=== PATIENT | female | born 1995 | race Caucasian/White ===

== ENCOUNTER 2017-08-02 21:29 | Emergency (ER) | payer SELFPAY ==
[~2017-08-02] VITALS: Ht 154.9 cm; Wt 85.0 kg
[~2017-08-02 21:29] MED LIST: CEPH500C3 PO; CYCL5TAB PO; DIFL150T PO; LO LTAB PO; NORE1CHW4 PO
[2017-08-02 21:31] VITALS: BP 130/88; PULSE 88; RESP 18; TEMP 99.9; O2SAT 98
[2017-08-02] MEDS ORDERED: ACETAMINOPHEN 325 MG TAB PO ONE (22:15)
--- NOTE | 2017-08-02 22:39 | PD ---
HPI . Swollen neck Chief Complaint: Back/ Neck Pain or Injury Time Seen by Provider: 22:11 Travel History International Travel<30 days: No Contact w/Intl Traveler<30days: No Traveled to known affect area: No History of Present Illness HPI This patient presents complaining with a swollen neck. Onset was 2 weeks ago. She states that it is associated with diffuse myalgias. She believes that her symptoms are secondary to being out of her levothyroxine. She is reportedly on levothyroxine for hyperthyroidism. The patient reports the acute onset of rhinorrhea and subjective fevers and chills last night. No modifying factors. Symptoms are mild. Symptoms have been continuous. PFSH Past Medical History Diminished Hearing: No Thyroid Disease: Yes (HYPERTHYROID) Tetanus Vaccination: < 5 Years Influenza Vaccination: Yes ?: Unknown LMP: 07/16/17 Past Surgical History Surgical History: No Previous Surgery Social History Alcohol Use: No Tobacco Use: No Substance Use: No Allergies-Medications (Allergen,Severity, Reaction): Coded Allergies: No Known Allergies (Unverified Adverse Reaction, Unknown, 08/02/17) Reported Meds & Prescriptions Reported Meds & Active Scripts Active No Active Prescriptions or Reported Medications Review of Systems Except as stated in HPI: all other systems reviewed are Neg General / Constitutional: Positive: Fever, Chills HENT: Positive: Rhinorrhea, Neck Pain, Masses Musculoskeletal: Positive: Myalgias Physical Exam Narrative Vital Signs Date Time Temp Pulse Resp B/P (MAP) Pulse Ox O2 Delivery O2 Flow Rate FiO2 08/02/17 22:14 14 08/02/17 21:31 99.9 88 18 130/88 (102) 98 Room Air GENERAL: Healthy-appearing 22-year-old in no distress. SKIN: warm/dry. Normal color. HEAD: Normocephalic. Atraumatic. EYES: Pupils equal and round. No scleral icterus. No injection or drainage. ENT: Mild nasal discharge. Mucous membranes pink and moist. Oropharynx has no erythema, exudate or tonsillar enlargement. NECK: Trachea midline. Full range of motion without pain.. No goiter palpated. Bilateral cervical lymphadenopathy. CARDIOVASCULAR: Regular rate and rhythm. RESPIRATORY: No accessory muscle use. Clear to auscultation. Breath sounds equal bilaterally. MUSCULOSKELETAL: No obvious deformities. NEUROLOGICAL: Awake and alert. No obvious cranial nerve deficits. Motor grossly within normal limits. Normal speech. PSYCHIATRIC: Appropriate mood and affect; insight and judgment normal. Data Data Last Documented VS Vital Signs Date Time Temp Pulse Resp B/P (MAP) Pulse Ox O2 Delivery O2 Flow Rate FiO2 08/03/17 00:34 98.9 81 14 131/63 (85) 97 08/02/17 21:31 Room Air Orders Orders Complete Blood Count With Diff (08/02/17 22:15) Influenzae A/B Antigen (08/02/17 22:15) Monoscreen (08/02/17 22:15) Basic Metabolic Panel (Bmp) (08/02/17 22:15) Thyroid Stimulating Hormone (08/02/17 22:15) Acetaminophen (Tylenol) (08/02/17 22:15) Group A Rapid Strep Screen (08/02/17 23:23) Strep Culture (Group A) (08/02/17 23:20) Ed Discharge Order (08/03/17 00:10) Labs Laboratory Tests Test 08/02/17 22:30 White Blood Count 7.5 TH/MM3 Red Blood Count 5.07 MIL/MM3 Hemoglobin 14.2 GM/DL Hematocrit 41.4 % Mean Corpuscular Volume 81.6 FL Mean Corpuscular Hemoglobin 27.9 PG Mean Corpuscular Hemoglobin Concent 34.2 % Red Cell Distribution Width 12.5 % Platelet Count 197 TH/MM3 Mean Platelet Volume 7.8 FL Neutrophils (%) (Auto) 61.5 % Lymphocytes (%) (Auto) 17.4 % Monocytes (%) (Auto) 20.4 % Eosinophils (%) (Auto) 0.1 % Basophils (%) (Auto) 0.6 % Neutrophils # (Auto) 4.6 TH/MM3 Lymphocytes # (Auto) 1.3 TH/MM3 Monocytes # (Auto) 1.5 TH/MM3 Eosinophils # (Auto) 0.0 TH/MM3 Basophils # (Auto) 0.0 TH/MM3 CBC Comment DIFF FINAL Differential Comment Blood Urea Nitrogen 11 MG/DL Creatinine 0.76 MG/DL Random Glucose 88 MG/DL Calcium Level 9.1 MG/DL Sodium Level 138 MEQ/L Potassium Level 3.9 MEQ/L Chloride Level 106 MEQ/L Carbon Dioxide Level 25.1 MEQ/L Anion Gap 7 MEQ/L Estimat Glomerular Filtration Rate 96 ML/MIN Thyroid Stimulating Hormone 3rd Gen 0.900 uIU/ML Monoscreen NEG MDM Medical Decision Making Medical Screen Exam Complete: Yes Emergency Medical Condition: Yes Medical Record Reviewed: Yes (the patient had a goiter noted on physical exam in the past. She had a subsequent thyroid panel and thyroid ultrasound which were negative. There is no record of treatment with hormone therapy in her records here.) Differential Diagnosis Differential diagnosis includes but is not limited to nonspecific viral illness , influenza, mononucleosis Narrative Course This patient presents with the chief complaint of neck swelling and pain. Her exam does not show goiter. She has cervical lymphadenopathy. I have ordered a CBC and BMP. I have also ordered a flu screen and mono screen. Because of her reported history of hyperthyroidism, I have added a TSH. CBC & BMP Diagram 08/02/17 22:30 Calcium Level 9.1 Monoscreen and flu screen neg. TSH 0.900 (normal) Diagnosis Primary Impression: Cervical lymphadenopathy Scripts No Active Prescriptions or Reported Meds Disposition: 01 DISCHARGE HOME Condition: Stable Chelle Ferro MD Aug 02, 2017 22:39
[2017-08-02 22:44] LABS: AUTOMATED NEUTROPHIL # 4.6 TH/MM3 (1.8-7.7); BASOPHIL % 0.6 % (0.0-2.0); EOSINOPHIL % 0.1 % (0.0-4.0); HEMATOCRIT 41.4 % (35.0-46.0); HEMOGLOBIN 14.2 GM/DL (11.6-15.3); LYMPH % 17.4 % (9.0-44.0); LYMPHOCYTE # 1.3 TH/MM3 (1.0-4.8); MEAN CELL VOLUME 81.6 FL (80.0-100.0); MEAN CORPUSCULAR HEMOGLOBIN 27.9 PG (27.0-34.0); MEAN CORPUSCULAR HGB CONC 34.2 % (32.0-36.0); MEAN PLATELET VOLUME 7.8 FL (7.0-11.0); MONO % 20.4 % (0.0-8.0); MONOCYTE # 1.5 TH/MM3 (0-0.9); NEUT % 61.5 % (16.0-70.0); PLATELET COUNT 197 TH/MM3 (150-450); RED BLOOD COUNT 5.07 MIL/MM3 (4.00-5.30); RED CELL DISTRIBUTION WIDTH 12.5 % (11.6-17.2); WHITE BLOOD COUNT 7.5 TH/MM3 (4.0-11.0)
[2017-08-02 23:06] LABS: BICARBONATE 25.1 MEQ/L (21.0-32.0); CALCIUM 9.1 MG/DL (8.5-10.1); CREATININE 0.76 MG/DL (0.50-1.00)
[2017-08-02 23:10] LABS: MONOSCREEN NEG (NEG)
--- NOTE | 2017-08-02 23:41 | PD ---
Physical Exam Time Seen by Provider: 23:20 Data Data Last Documented VS Vital Signs Date Time Temp Pulse Resp B/P (MAP) Pulse Ox O2 Delivery O2 Flow Rate FiO2 08/03/17 00:01 14 08/02/17 21:31 99.9 88 130/88 (102) 98 Room Air Orders Orders Complete Blood Count With Diff (08/02/17 22:15) Influenzae A/B Antigen (08/02/17 22:15) Monoscreen (08/02/17 22:15) Basic Metabolic Panel (Bmp) (08/02/17 22:15) Thyroid Stimulating Hormone (08/02/17 22:15) Acetaminophen (Tylenol) (08/02/17 22:15) Group A Rapid Strep Screen (08/02/17 23:23) Strep Culture (Group A) (08/02/17 23:20) Labs Laboratory Tests Test 08/02/17 22:30 White Blood Count 7.5 TH/MM3 Red Blood Count 5.07 MIL/MM3 Hemoglobin 14.2 GM/DL Hematocrit 41.4 % Mean Corpuscular Volume 81.6 FL Mean Corpuscular Hemoglobin 27.9 PG Mean Corpuscular Hemoglobin Concent 34.2 % Red Cell Distribution Width 12.5 % Platelet Count 197 TH/MM3 Mean Platelet Volume 7.8 FL Neutrophils (%) (Auto) 61.5 % Lymphocytes (%) (Auto) 17.4 % Monocytes (%) (Auto) 20.4 % Eosinophils (%) (Auto) 0.1 % Basophils (%) (Auto) 0.6 % Neutrophils # (Auto) 4.6 TH/MM3 Lymphocytes # (Auto) 1.3 TH/MM3 Monocytes # (Auto) 1.5 TH/MM3 Eosinophils # (Auto) 0.0 TH/MM3 Basophils # (Auto) 0.0 TH/MM3 CBC Comment DIFF FINAL Differential Comment Blood Urea Nitrogen 11 MG/DL Creatinine 0.76 MG/DL Random Glucose 88 MG/DL Calcium Level 9.1 MG/DL Sodium Level 138 MEQ/L Potassium Level 3.9 MEQ/L Chloride Level 106 MEQ/L Carbon Dioxide Level 25.1 MEQ/L Anion Gap 7 MEQ/L Estimat Glomerular Filtration Rate 96 ML/MIN Thyroid Stimulating Hormone 3rd Gen 0.900 uIU/ML Monoscreen NEG MDM Medical Record Reviewed: Yes Supervised Visit with KEREN: No Narrative Course See previous providers notes. She been having some soreness in her trapezius and posterior neck region for 2 weeks. For the past few days she's been having chills and nasal congestion. Physical examination is benign. Neck is supple full range of motion. She reported a history of hyperthyroidism for which she is prescribed levothyroxine but she is out of it. Upon further questioning she thinks that she is likely diagnosed with hypothyroidism and not hyperthyroidism. There is no objective evidence of this in her records. She was seen in November 2015 at an urgent care center and had a normal ultrasound of the thyroid and had normal thyroid function tests. Today she has a TSH of 0.9 which is not suggestive of hypothyroidism and not of her symptoms are suggestive of hypothyroidism. Her CBC and BMP are normal. Her mono screen is negative. Rapid strep screen negative. The patient appears quite well and I suspect a viral syndrome. She is stable for discharge. Diagnosis Primary Impression: Cervical lymphadenopathy Additional Impression: Viral syndrome Additional Instruction: Stay well-hydrated and well-nourished. Tylenol or Motrin for fever/body aches. Follow-up close with primary care physician and return for any emergent medical conditions. Med/Other Pt SpecificInfo: No Change to Meds Scripts No Active Prescriptions or Reported Meds Disposition: 01 DISCHARGE HOME Condition: Stable Golden Rios Aug 02, 2017 23:41
[2017-08-03 00:01] VITALS: RESP 14
[2017-08-03 00:34] VITALS: BP 131/63; TEMP 98.9
== END 2017-08-03 00:35 | disposition home or self-care (01) ==
LOC: NEPD 21:29
DX: R59.0 Localized enlarged lymph nodes (principal); B34.9 Viral infection, unspecified; E07.9 Disorder of thyroid, unspecified
CPT/HCPCS: 80048; 84443; 85025; 86308; 87081; 87804; 87880; 99284